=== PATIENT | male | born 1985 ===

== ENCOUNTER 2024-01-16 10:45 | Emergency (ER) | payer OTHER ==
[~2024-01-16] VITALS: Ht 182.9 cm; Wt 126.0 kg
[2024-01-16 11:36] VITALS: BP 133/85; PULSE 77; RESP 16; TEMP 98.7; O2SAT 98
[2024-01-16] MEDS: IBUPROFEN 600 MG TABLET PO ONE (12:23)
[2024-01-16] MEDS: CEPHALEXIN MONOHYDRATE 500 MG CAPSULE PO ONE (12:23)
[2024-01-16] MEDS: DOXYCYCLINE HYCLATE 100 MG TABLET PO ONE (12:24)
[2024-01-16] MEDS: LIDOCAINE 1% 10 ML VIAL SQ ONE (12:24)
== END 2024-01-16 14:54 | disposition home or self-care (01) ==
LOC: EMS 10:45
DX: K61.1 Rectal abscess (principal)
CPT/HCPCS: 46040; 99284; J3490